=== PATIENT | male | born 1965 | race Caucasian/White ===

== ENCOUNTER 2017-03-16 16:16 | Inpatient (IN) | payer BC ==
[~2017-03-16] VITALS: Ht 154.9 cm; Wt 84.1 kg
[2017-03-16] MEDS ORDERED: HYDROmorphONE 1 MG/ML SYG IV STA ×2 (16:40→21:10)
[2017-03-16] MEDS ORDERED: ONDANSETRON 4 MG INJ IV STA ×2 (16:40→21:10)
[2017-03-16] MEDS ORDERED: IBUPROFEN 800 MG TAB PO ONE (17:00)
[2017-03-16] MEDS ORDERED: CEFTRIAXONE 1 GM/50 ML (PMX) 50 ML IVPB ONE (17:00)
[2017-03-16 17:26] LABS: ADD SCAN DIFF NO
[2017-03-16 17:28] LABS: ABNORMAL IP MESSAGE 1; BASOPHILS % 0.1 % (0.0-2.0); HEMATOCRIT 46.6 % (42.0-52.0); LYMPHOCYTES # 0.7 10^3/ul (0.8-2.9); LYMPHOCYTES % 3.2 % (15.0-51.0); MEAN CORPUSCULAR HEMOGLOBIN 29.9 pg (29.0-33.0); MEAN CORPUSCULAR HGB CONC 34.3 g/dl (32.0-37.0); MEAN CORPUSCULAR VOLUME 86.9 fl (82.0-101.0); MEAN PLATELET VOLUME 10.7 fl (7.4-10.4); MONOCYTE # 1.6 10^3/ul (0.3-0.9); MONOCYTES % 7.1 % (0.0-11.0); NEUTROPHILS % 88.3 % (39.0-77.0); PLATELET COUNT 156 10^3/UL (140-415); RED BLOOD COUNT 5.36 10^6/ul (4.70-6.10); RED CELL DISTRIBUTION WIDTH 12.5 % (11.5-14.5); WHITE BLOOD COUNT 22.7 10^3/ul (4.8-10.8)
[2017-03-16 17:31] LABS: ADD UMIC YES; URINE BILIRUBIN (Dip) 1+ (NEGATIVE); URINE BLOOD (Dip) 3+ (NEGATIVE); URINE COLOR AMBER (YELLOW); URINE KETONES (Dip) NEGATIVE (NEGATIVE); URINE LEUKOCYTE ESTERASE (Dip) 3+ (NEGATIVE); URINE TOTAL PROTEIN (Dip) 2+ (NEGATIVE)
[2017-03-16 17:49] LABS: ALBUMIN 4.5 g/dl (3.3-4.9)
[2017-03-16 17:50] LABS: POTASSIUM 3.6 mmol/L (3.5-5.1)
[2017-03-16 17:52] LABS: ALBUMIN/GLOBULIN RATIO 1.28; BILIRUBIN,INDIRECT 0.9 mg/dl (0-1.1); BILIRUBIN,TOTAL 0.9 mg/dl (0.2-1.3); CREATININE 0.76 mg/dl (0.61-1.24)
[2017-03-16 17:53] LABS: CALCIUM 9.1 mg/dl (8.4-10.2)
[2017-03-16] MEDS ORDERED: SOD CHLORIDE 0.9% 100 ML ONE (18:06)
[2017-03-16] MEDS ORDERED: IOHEXOL 300MG/ML 150 ML BTL ONE (18:06)
[2017-03-16 18:07] LABS: URINE GLUCOSE (Dip) NEGATIVE (NEGATIVE)
[2017-03-16 18:10] LABS: ICTOTEST NEGATIVE (NEGATIVE)
[2017-03-16 18:11] LABS: URINE NITRITE (Dip) POSITIVE (NEGATIVE)
[2017-03-16 18:14] LABS: URINE UROBILINOGEN (Dip) 4.0 E.U./dL (0.1-1.0)
[2017-03-16 18:15] LABS: URINE RBCS 25-50 /HPF (0)
[2017-03-16 18:16] LABS: BACTERIA,URINE FEW
--- NOTE | 2017-03-16 18:38 | RADRPT ---
PROCEDURE: CT Abdomen and Pelvis with contrast. CLINICAL INDICATION: Abdominal pain TECHNIQUE: CT scan of the abdomen and pelvis with contrast was performed on a multidetector high-r esolution CT scanner. Coronal and sagittal reformatted images were obtained from the axial source im ages. Images were reviewed on a high-resolution PACS workstation. 80 cc of Isovue 300 iodinated cont rast was administered intravenously without reported complication. The total exam CTDI equals 16 mG y and the total exam DLP equals 948 mGy-cm. One or more of the following dose reduction techniques were used: Automated exposure control, Adjustment of the mA and/or kV according to patient size, and /or use of iterative reconstruction technique. COMPARISON: Abdominal CT 10/31/08 FINDINGS: Bibasilar atelectasis. Hypoattenuation of the liver. The portal vein is patent. Dilated common bile duct measuring up to 9 mm. Left hepatic cyst. No pancreatic ductal dilatation. The spleen and adrenals are unremarkabl e. No focal pericholecystic inflammatory changes. No hydronephrosis. No obstructing renal stone. No bowel obstruction. Surgical changes of prior appendectomy. No rim-enhancing fluid collection ervin ntified. No significant retroperitoneal lymphadenopathy, ascites or evidence of pneumoperitoneum. Enlarged prostate gland bulging into the base of the bladder. The bladder is distended. IMPRESSION: Status post appendectomy. No evidence of intra-abdominal abscess. Hepatic steatosis. Dilated common bile duct. If warranted, consider further evaluation with MRCP. Enlarged prostate bulging into the base of the distended bladder. RPTAT: AA .Joel Diggs MD, Date Time Electronically viewed and signed by .Joel Diggs MD, MD on 03/16/2017 18:38 .T/
--- NOTE | 2017-03-16 19:09 | ERA ---
ER Documentation Chief Complaint Date/Time DATE: 03/16/17 TIME: 19:04 Chief Complaint painful urination since yesterday HPI This is a pleasant 51-year-old male who is complaining of fever for 2 days with severe dysuria. He has no pain in the cranium. His fever to 103. He has no cough no back pain no nausea vomiting diarrhea. He does have urinary frequency and dysuria prepubic and lower abdominal pain no hematuria. Describes the pain is constant in the lower abdomen and worse with voiding ROS All systems reviewed and are negative except as per history of present illness. Allergies Allergies: Coded Allergies: No Known Allergy (Verified Allergy, Unknown, 10/31/08) PMhx/Soc History of Surgery: Yes (HAND ,APPE) Hx Alcohol Use: No Hx Substance Use: No Hx Tobacco Use: No FmHx Family History: No coronary disease Physical Exam Vitals Vital Signs Date Time Temp Pulse Resp B/P Pulse Ox O2 Delivery O2 Flow Rate FiO2 03/16/17 16:21 102.0 126 26 184/99 96 Physical Exam Const: Well-developed, well-nourished Head: Atraumatic, normocephalic Eyes: Normal Conjunctiva, PERRLA, EOMI, normal sclera, no nystagmus ENT: Normal External Ears, Nose and Mouth, moist mucus membranes. Neck: Full range of motion. No meningismus, no lymphadenopathy. Resp: Clear to auscultation bilaterally, no wheezing, rhonchi, rales Cardio: Regular rate and rhythm, no murmurs, S1 S2 present Abd: Soft, diffuse lower abdominal tenderness or suprapubic, non distended. Normal bowel sounds, no guarding or rebound, no pulsitile abdominal masses or bruits Skin: No petechiae or rashes, no ecchymosis , no maculopapular rash Back: No midline or flank tenderness Ext: No cyanosis, or edema, FROM x 4, normal inspection, neurovascularly intact x 4 Neur: Awake and alert, STR 5/5 x 4, sensation intact x 4, no focal findings, cerebellum intact Psych: Normal Mood and Affect Result Diagram: 03/16/17 1712 03/16/17 1712 Results 24 hrs Laboratory Tests Test 03/16/17 17:12 White Blood Count 22.710^3/ul Red Blood Count 5.3610^6/ul Hemoglobin 16.0g/dl Hematocrit 46.6% Mean Corpuscular Volume 86.9fl Mean Corpuscular Hemoglobin 29.9pg Mean Corpuscular Hemoglobin Concent 34.3g/dl Red Cell Distribution Width 12.5% Platelet Count 84040^3/UL Mean Platelet Volume 10.7fl Neutrophils % 88.3% Lymphocytes % 3.2% Monocytes % 7.1% Eosinophils % 0.0% Basophils % 0.1% Nucleated Red Blood Cells % 0.0/100WBC Neutrophils # 20.010^3/ul Lymphocytes # 0.710^3/ul Monocytes # 1.610^3/ul Eosinophils # 0.010^3/ul Basophils # 0.010^3/ul Nucleated Red Blood Cells # 0.010^3/ul Urine Color ÁNGEL Urine Clarity CLOUDY Urine pH 8.5 Urine Specific Worth 1.015 Urine Ketones NEGATIVE Urine Nitrite POSITIVE Urine Bilirubin 1+ Urine Ictotest NEGATIVE Urine Urobilinogen 4.0 E.U./dL Urine Leukocyte Esterase 3+ Urine Microscopic RBC 25-50/HPF Urine Microscopic WBC 25-50/HPF Urine Amorphous Urates MANY Urine Bacteria FEW Urine Hemoglobin 3+ Urine Glucose NEGATIVE% Urine Total Protein 2+ Sodium Level 136mmol/L Potassium Level 3.6mmol/L Chloride Level 97mmol/L Carbon Dioxide Level 24mmol/L Anion Gap 19 Blood Urea Nitrogen 10mg/dl Creatinine 0.76mg/dl Glucose Level 181mg/dl Calcium Level 9.1mg/dl Total Bilirubin 0.9mg/dl Direct Bilirubin 0.00mg/dl Indirect Bilirubin 0.9mg/dl Aspartate Amino Transf (AST/SGOT) 68IU/L Alanine Aminotransferase (ALT/SGPT) 146IU/L Alkaline Phosphatase 98IU/L Total Protein 8.0g/dl Albumin 4.5g/dl Globulin 3.50g/dl Albumin/Globulin Ratio 1.28 Current Medications Medications (Trade) Dose Ordered Sig/Jose Route PRN Reason Start Time Stop Time Status Last Admin Dose Admin Hydromorphone HCl (Dilaudid) 1 mg ONCE STAT IV 03/16/17 16:40 03/16/17 16:47 DC 03/16/17 17:06 Ondansetron HCl 4 mg 4 mg ONCE STAT IV 03/16/17 16:40 03/16/17 16:47 DC 03/16/17 17:05 Ceftriaxone Sodium (Rocephin) 50 ml @ 100 mls/hr ONCE ONCE IVPB 03/16/17 17:00 03/16/17 17:29 DC 03/16/17 17:05 Ibuprofen (Motrin) 800 mg ONCE ONCE PO 03/16/17 17:00 03/16/17 17:01 DC 03/16/17 17:06 IV Flush 10 ml 10 ml STK-MED ONCE .ROUTE 03/16/17 18:06 03/16/17 18:07 DC 03/16/17 18:24 Sodium Chloride (NS) 100 ml @ ud STK-MED ONCE .ROUTE 03/16/17 18:06 03/16/17 18:07 DC 03/16/17 18:24 Iohexol (Omnipaque 300mg/ ml) 150 ml STK-MED ONCE .ROUTE 03/16/17 18:06 03/16/17 18:07 DC 03/16/17 18:24 Procedures/MDM Patient has an elevated white blood count of 22,700 and infected urine. He has some mild liver function elevations and a dilated common bile duct on CT however he does not clinically have any pain in the epigastric right upper quadrant to correlate with this. I feel is warranted to admit him to the hospital for IV fluids and intravenous antibiotics due to the 102-103 fever with elevated white blood count to make sure he does not become uroseptic Departure Diagnosis: Primary Impression: Fever Qualified Code: R50.9 - Fever, unspecified fever cause Additional Impressions: Urinary tract infection Qualified Code: N30.00 - Acute cystitis without hematuria Leukocytosis Qualified Code: D72.829 - Leukocytosis, unspecified type Condition: Stable DALLAS MCFADDEN DO March 16, 2017 19:08
[2017-03-16] MEDS ORDERED: SOD CHLORIDE 0.9% 1,000 ML IV SCH (21:41)
[2017-03-16] MEDS ORDERED: ONDANSETRON 4 MG INJ IV PRN (22:00)
[2017-03-16] MEDS ORDERED: ACETAMINOPHEN 325 MG TAB PO PRN (22:00)
[2017-03-16 22:36] VITALS: TEMP 98.7
[2017-03-16 23:03] VITALS: Ht 154.9 cm; Wt 84.1 kg
[2017-03-16 23:10] VITALS: BP 129/80; RESP 20
[2017-03-16 23:22] VITALS: BP 129/80; PULSE 104; RESP 18
[2017-03-17] MEDS ORDERED: ONDANSETRON 4 MG INJ IV PRN
[2017-03-17] MEDS ORDERED: NACL 0.9% 3 ML SYG IV SCH
[2017-03-17] MEDS ORDERED: ACETAMINOPHEN 325 MG TAB PO PRN
[2017-03-17] MEDS ORDERED: BISACODYL (EC) 5 MG TAB PO PRN
[2017-03-17] MEDS ORDERED: DOCUSATE SODIUM 100 MG CAP PO PRN
[2017-03-17] MEDS: FAMOTIDINE 20 MG TAB PO SCH ×3 (00:37→21:30)
[2017-03-17] MEDS: HYDROCODONE/APAP (5/325) TAB PO PRN ×5 (00:38→22:59)
[2017-03-17] MEDS: SOD CHLORIDE 0.9% 1,000 ML IV SCH ×2 (00:41→21:32)
[2017-03-17] MEDS: LEVOFLOXACIN 750MG/D5W (PMX) 150 ML IVPB SCH ×2 (01:10→23:00)
[2017-03-17 05:17] LABS: ADD SCAN DIFF NO
[2017-03-17 05:40] LABS: HEMATOCRIT 43.5 % (42.0-52.0); HEMOGLOBIN 14.6 g/dl (14.0-18.0); MEAN CORPUSCULAR HEMOGLOBIN 30.1 pg (29.0-33.0); MEAN CORPUSCULAR HGB CONC 33.6 g/dl (32.0-37.0); MEAN CORPUSCULAR VOLUME 89.7 fl (82.0-101.0); MEAN PLATELET VOLUME 10.6 fl (7.4-10.4); PLATELET COUNT 140 10^3/UL (140-415); RED BLOOD COUNT 4.85 10^6/ul (4.70-6.10); RED CELL DISTRIBUTION WIDTH 12.8 % (11.5-14.5); WHITE BLOOD COUNT 19.4 10^3/ul (4.8-10.8)
[2017-03-17 05:42] LABS: ALBUMIN 3.7 g/dl (3.3-4.9); ALBUMIN/GLOBULIN RATIO 1.12; BILIRUBIN,INDIRECT 0.8 mg/dl (0-1.1); BILIRUBIN,TOTAL 0.8 mg/dl (0.2-1.3); CALCIUM 8.5 mg/dl (8.4-10.2); CHOL/HDL RATIO 3.6 RATIO; CREATININE 0.81 mg/dl (0.61-1.24)
--- NOTE | 2017-03-17 06:12 | HP ---
Date/Time of Note Date/Time of Note DATE: 03/17/17 TIME: 05:58 Assessment/Plan VTE Prophylaxis VTE Prophylaxis Intervention: LMWH Lines/Catheters [facility] Peripheral IV Urinary Cath still in place: No Assessment/Plan Chief Complaint/Hosp Course This is a 51-year-old male being admitted to the [facility] floor for: #1 Lower urinary tract infection: At the current time patient appears to have an uncomplicated UTI however due to the concern of him having a high fever of 103 and a white blood cell count of 22 patient was admitted for IV antibiotics. He was given 1 dose of ceftriaxone in the ER. At the current time I will switch him to Levaquin IV with the concern that there could be a possible underlying prostatitis. He deferred a prostate exam at this time. Will order a PSA level. Repeat CBC in the a.m. Will put patient on IV fluids for hydration. #2 Elevated LFTs: Denies any right upper quadrant pain at this time. However on ultrasound of the abdomen there does appear to be a dilated common bile duct and hepatic steatosis. Will order an initial right upper quadrant ultrasound. And get any further imaging as clinically indicated. #3 Enlarged prostate: CT exam shows an enlarged prostate bulging into the bladder. At the current time patient is producing urine and creatinine is within acceptable values. Will order PSA. Watch out for prostatitis. Consider starting on medications for possible BPH upon discharge. #4 DVT and GI prophylaxis: Lovenox, H2 elijah Problems: HPI/ROS Admit Date/Time Admit Date/Time March 16, 2017 at 21:42 Hx of Present Illness This is a pleasant 51-year-old male who is complaining of fever for 2 days with severe dysuria. He has no pain in the cranium. His fever to 103. He has no cough no back pain no nausea vomiting diarrhea. He does have urinary frequency and dysuria prepubic and lower abdominal pain no hematuria. Describes the pain is constant in the lower abdomen and worse with voiding. Allergies: NKDA Medications: None ROS Const: As per HPI Eyes : No pain discharge or redness or change in visual acuity ENT: No pain, sore throat, congestion, congestion, dysphagia or discharge Respiratory: No shortness of breath, cough, sputum, wheezing, or pleuritic pain Cardiovascular: No chest pain, palpitation, PND, or edema GI : As per HPI Genitourinary: As per HPI Musculoskeletal: No joint pain, back pain, neck pain, restricted range of motion in neck or joints Skin: No rash, bruising or hives Neuro: No headache, dizziness, syncope, seizure, focal weakness Endocrine: No polyuria, polydipsia, temperature intolerance Psych: No hallucination, depression, anxiety or suicidal ideation PMH/Family/Social Past Medical History Medical History: no pertinent history Past Surgical History Appendectomy, left elbow fracture repair Family History Significant Family History: cancer (Father: Prostate cancer) Social History Alcohol Use: none Smoking Status: Never smoker Drug Use: none Exam/Review of Systems Vital Signs Vitals Vital Signs Date Time Temp Pulse Resp B/P Pulse Ox O2 Delivery O2 Flow Rate FiO2 03/16/17 23:22 99.0 104 18 129/80 94 03/16/17 22:36 Room Air Intake and Output 03/16/17 03/16/17 03/17/17 15:00 23:00 07:00 Intake Total 80 ml 250 ml Balance 80 ml 250 ml Exam Exam General: Patient is well-developed well-nourished The patient is alert oriented -3 lying comfortably in bed. HEENT: Atraumatic, normocephalic. The pupils are equal, round and reactive. Extraocular motor are intact Neck: Supple with full range of motion. No rigidity or meningismus Chest: Nontender Lungs: Clear to auscultation bilaterally no crackles rales or wheezing Heart: Normal S1-S2, Regular rhythm and rate. No murmur, S3, or S4 Abdomen: Suprapubic tenderness to palpation, soft, normal bowel sounds. No CVA tenderness bilaterally Extremities: Normal to inspection, no edema no cyanosis Neurologic: Normal mental status, speech normal, cranial nerves II through XII are intact, motor and sensory are intact, no focal weakness Additional Comments CT of the abdomen and pelvis IMPRESSION: Status post appendectomy. No evidence of intra-abdominal abscess. Hepatic steatosis. Dilated common bile duct. If warranted, consider further evaluation with MRCP. Enlarged prostate bulging into the base of the distended bladder. Please refer to dictated report by radiology for further information Labs Result Diagram: 03/17/17 0439 03/17/17 0439 Medications Medications Current Medications Levofloxacin/ Dextrose 150 ml @ 100 mls/hr Q24H IVPB Last administered on 01:10; Admin Dose 100 MLS/HR; Start 03/17/17 at 00:00 Sodium Chloride (NS) 1,000 ml @ 50 mls/hr Q20H IV Last administered on 00:41; Admin Dose 50 MLS/HR; Start 03/16/17 at 23:59 Ondansetron HCl (Zofran Inj) 4 mg Q6H PRN IV NAUSEA AND/OR VOMITING; Start 03/17 at 00:00 Acetaminophen (Tylenol Tab) 650 mg Q6H PRN PO PAIN LEVEL 1-3 OR FEVER; Start at 00:00 Acetaminophen/ Hydrocodone Bitart ([place] (5/325)) 1 tab Q6H PRN PO MODERATE PAIN LEVEL 4-6 Last administered on 03/17/17 00:38; Admin Dose 1 TAB; Start 03/17 at 00:00 Docusate Sodium (Colace) 100 mg Q12H PRN PO CONSTIPATION; Start 03/17/17 at 00: 00 Bisacodyl (Dulcolax) 5 mg DAILY PRN PO CONSTIPATION; Start 03/17/17 at 00:00 Zolpidem Tartrate (Ambien) 5 mg QHS PRN PO SLEEP; Start 03/17/17 at 00:00 Famotidine (Pepcid) 20 mg Q12 PO Last administered on 03/17/17 00:37; Admin Dose 20 MG; Start 03/17/17 at 00:00 Enoxaparin Sodium (Lovenox) 40 mg DAILY SC ; Start 03/17/17 at 09:00 FAUSTINA MONK March 17, 2017 06:08
[2017-03-17 08:17] VITALS: BP 113/64; RESP 18
[2017-03-17] MEDS: ENOXAPARIN 40 MG/0.4 ML SYG SC SCH (08:18)
--- NOTE | 2017-03-17 09:19 | RADRPT ---
PROCEDURE: US Abdomen. CLINICAL INDICATION: elevated LFTs TECHNIQUE: Multiple real-time images were acquired of the patient's abdomen and retroperitoneum ut ilizing a high resolution transducer. COMPARISON: 03/16/2017 FINDINGS: The liver demonstrates increased echogenicity. The liver is normal in size and no focal solid lesio ns are seen. The liver measures 16.6 cm in length. The portal vein is patent with normal direction o f flow. No intrahepatic biliary dilatation is seen. No gallstones are identified within the gallbladder. There is no pericholecystic fluid or gallbladd er wall thickening. The common bile duct measures 10 mm in maximal dimension. The visualized portions of the pancreas are unremarkable. The tail of the pancreas is not seen. No free fluid is identified. The right kidney is normal in size, and demonstrate normal echogenicity and cortical thickness. The right kidney measures 11.7 cm in long dimension. There is no evidence of hydronephrosis. There are no kidney stones. IMPRESSION: Diffuse fatty infiltration of the liver.. Dilated CBD. No evidence of gallstones. RPTAT: AA .Puma Rondon MD, MD Date Time Electronically viewed and signed by .Puma Rondon MD, MD on 03/17/2017 09:19 .S/
[2017-03-17 09:56] LABS: LYMPHOCYTES # 1.4 10^3/ul (0.8-2.9); NEUTROPHIL # 16.9 10^3/ul (1.6-7.5)
[2017-03-17 20:27] VITALS: BP 121/73; RESP 19
[2017-03-17] MEDS: TAMSULOSIN (SR) 0.4 MG CAP PO SCH (21:30)
[2017-03-17] MEDS: ZOLPIDEM 5 MG TAB PO PRN (23:54)
--- NOTE | 2017-03-18 02:57 | CONS ---
DATE OF ADMISSION: 03/17/2017 DATE OF CONSULTATION: 03/17/2017 REQUESTING PHYSICIAN: Dr. Kelly. Dear Dr. Kelly: Thank you for asking me to see this patient in urological consultation. 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 The p atient was found to have urinary tract infection and probably prostatitis. He did have a CT scan of the abdomen and pelvis and that showed a bladder distended all the way up to the umbilicus and also the patient had a very large prostate. Therefore, a urological consultation was requested. Prior to this episode of infection, the patient stated that he usually have nocturia 0 to 1. During the d ay, he voids often because he drinks a lot of water and he described his urinary stream as strong an d no history of dysuria before and no history of gross hematuria. His father does have a history of prostate cancer, but he is in his 80s. The patient denies any prior urological problem. PAST MEDICAL HISTORY: In addition to the above, the patient has no prior medical problem. No hyper tension. No diabetes. No heart or lung disease. PAST SURGICAL HISTORY: He has had a history of appendectomy, left elbow fracture and surgery. SOCIAL HISTORY: He does not smoke, does not drink alcohol, and there is no history of drug abuse. MEDICATIONS: He is presently on include 1. Tamsulosin 0.4 mg at bedtime daily. 2. [place] p.r.n. 3. Lovenox. 4. Levaquin. 5. Zofran p.r.n. 6. Tylenol p.r.n. 7. Colace 100 mg twice a day p.r.n. 8. Dulcolax p.r.n. 9. Ambien p.r.n. 10. Pepcid 20 mg p.o. every 12 hours. PHYSICAL EXAMINATION: GENERAL: Reveals a 51-year-old male. VITAL SIGNS: He weighs 84 kilograms. He is 61 inches tall. His temperature on admission was 102.0 . Today, his temperature is 99.3; pulse is 105, respiration 18, blood pressure 113/64. HEAD AND NECK: Unremarkable. ABDOMEN: Obese, it felt to me like his bladder is distended, but yet he just voided and I did the b ladder scan on him and his PVR by the bladder scan appeared to be between 150 to 200 mL. GENITALIA: External genitalia are normal. RECTAL: Examination revealed a very large prostate and is a little bit tender. LABORATORY DATA: His CBC shows a white count of 22.7 on admission, today is 19.4, hemoglobin 14.6, hematocrit 43.5. BUN 14 and creatinine 0.81. Electrolytes are normal. His PSA is 50.5. The PSA i s probably elevated because of the infection; however, possibility of prostate cancer always exists. IMPRESSION: Urinary tract infection and acute prostatitis, rule out urinary retention. PLAN: To continue him on antibiotic and the Flomax. I ordered also a pelvic ultrasound to make camryn e that there is no retention. Will have the bladder volume measured before he voids and after he vo ids, and also measure the prostate and I already checked the prostate on the CAT scan and measured i t and it is very large measuring between 5 and 6 cm in size. I will follow his urological problem with you. I do thank you for allowing me to help in his care. His urine culture did show 100,000 colonies per mL of gram-negative rods. The sensitivity is pendi ng. Dictated By: MITZI LEZAMA/BETTINA Conf#: [id number] DID#: [id number]
[2017-03-18] MEDS: HYDROCODONE/APAP (5/325) TAB PO PRN ×3 (03:27→17:05)
[2017-03-18 05:21] LABS: ADD SCAN DIFF NO
[2017-03-18 05:25] LABS: BASOPHILS % 0.2 % (0.0-2.0); EOSINOPHILS # 0.1 10^3/ul (0.0-0.5); EOSINOPHILS % 0.7 % (0.0-7.0); HEMATOCRIT 41.6 % (42.0-52.0); HEMOGLOBIN 13.8 g/dl (14.0-18.0); LYMPHOCYTES # 1.1 10^3/ul (0.8-2.9); LYMPHOCYTES % 8.9 % (15.0-51.0); MEAN CORPUSCULAR HEMOGLOBIN 29.9 pg (29.0-33.0); MEAN CORPUSCULAR HGB CONC 33.2 g/dl (32.0-37.0); MEAN CORPUSCULAR VOLUME 90.2 fl (82.0-101.0); MEAN PLATELET VOLUME 10.8 fl (7.4-10.4); MONOCYTE # 1.1 10^3/ul (0.3-0.9); MONOCYTES % 9.2 % (0.0-11.0); NEUTROPHIL # 9.5 10^3/ul (1.6-7.5); NEUTROPHILS % 78.4 % (39.0-77.0); PLATELET COUNT 165 10^3/UL (140-415); RED BLOOD COUNT 4.61 10^6/ul (4.70-6.10); RED CELL DISTRIBUTION WIDTH 12.6 % (11.5-14.5); WHITE BLOOD COUNT 12.1 10^3/ul (4.8-10.8)
[2017-03-18 05:39] LABS: CALCIUM 8.7 mg/dl (8.4-10.2); CREATININE 0.8 mg/dl (0.61-1.24); MAGNESIUM 1.9 mg/dl (1.7-2.5); PHOSPHORUS 3.1 mg/dl (2.5-4.9); POTASSIUM 3.7 mmol/L (3.5-5.1)
--- NOTE | 2017-03-18 07:55 | RADRPT ---
PROCEDURE: MRCP. CLINICAL INDICATION: Abdominal pain. TECHNIQUE: MRCP was performed. Patient was examined without contrast. 3-D coronal rotating MIP i mages of the biliary tree are available for review. COMPARISON: Ultrasound, 03/17/2017; CT, 03/16/2017 FINDINGS: The gallbladder is unremarkable. No gallstone, gallbladder wall thickening or pericholecystic fluid is identified. There is mild dilatation of the common bile duct, measuring 9 mm in maximal diameter . No intrahepatic biliary dilatation is identified. No evidence of common duct stone, stricture or filling defect is seen. Pancreatic duct is normal in caliber. Borderline hepatomegaly (18 cm) and splenomegaly (13 cm) are noted. Liver demonstrates a small kate gn cysts. Pancreas, adrenal glands and kidneys are unremarkable. There is no obstructive uropathy. The stomach is grossly unremarkable. Abdominal aorta is normal in caliber. There is no retroperitoneal or vernon hepatis lymphadenopathy. No bowel obstruction, abscess or ascites is seen. Urinary bladder appears significantly distended , concerning for urinary retention. The surrounding osseous structures are remarkable for degenerat catrachita spondylosis of the spine. IMPRESSION: 1. There is nonspecific mild dilatation of the common bile duct, without evidence of intrahepatic b iliary dilatation or choledocholithiasis. 2. There is borderline hepatosplenomegaly, as above. 3. Urinary bladder appears significantly distended, concerning for urinary retention. RPTAT: EE .Brandon Higuera MD, Date Time Electronically viewed and signed by .Brandon Higuera MD, on 03/18/2017 07:54 .R/
--- NOTE | 2017-03-18 08:01 | RADRPT ---
PROCEDURE: Ultrasound pelvis CLINICAL INDICATION: Urinary retention, prostatomegaly TECHNIQUE: Transabdominal sonographic evaluation of the pelvis was performed. COMPARISON: CT, 03/16/2017 FINDINGS: No evidence of focal urinary bladder wall abnormality is identified. Prevoid bladder volume is 821 cc. Postvoid residual is 565 cc. The prostate gland is not well visualized, measuring approximate ly 3.5 x 3.9 x 3.4 cm, with calculated volume of approximately 30 cc. No pelvic free fluid is ident ified. IMPRESSION: 1. Abnormal urinary bladder postvoid residual of 565 cc is identified, compatible with urinary rete ntion. 2. Prostate gland is not well visualized. Prostate volume is sonographically calculated to be appr oximately 30 cc, however this measurement is thought to be inaccurate secondary to poor visualizatio n of the prostate. On the recent prior CT, the prostate is clearly enlarged, measuring approximately 6.2 x 5.2 x 5.1 cm, with a calculated volume of approximately 86 cc. RPTAT: EE .Brandon Higuera MD, MD Date Time Electronically viewed and signed by .Brandon Higuera MD, on 03/18/2017 08:01 .R/
[2017-03-18 08:45] VITALS: BP 129/71; RESP 20
[2017-03-18] MEDS: FAMOTIDINE 20 MG TAB PO SCH ×2 (08:55→20:12)
[2017-03-18] MEDS: ENOXAPARIN 40 MG/0.4 ML SYG SC SCH (09:00)
[2017-03-18] MEDS: CEFTRIAXONE 1 GM/50 ML (PMX) 50 ML IVPB SCH (11:59)
--- NOTE | 2017-03-18 14:33 | PN ---
Date/Time of Note Date/Time of Note DATE: 03/18/17 TIME: 14:29 Assessment/Plan VTE Prophylaxis VTE Prophylaxis Intervention: LMWH Lines/Catheters [facility] Peripheral IV Urinary Cath still in place: No Assessment/Plan Chief Complaint/Hosp Course #1 Sepsis secondary to prostatitis-improved Urine culture shows E. coli, DC Levaquin and start Rocephin #2 Elevated LFTs-improving MRCP shows nonspecific dilated common bile duct without choledocholithiasis #3 BPH Urology consultation appreciated Continue Flomax At this time there is no evidence of urinary retention #4 DVT and GI prophylaxis: Lovenox, H2 eliajh Discharge planning: Likely DC in a.m. when white count has normalized Problems: Subjective 24 Hr Interval Summary Constitutional: no complaints Exam/Review of Systems Vital Signs Vitals Vital Signs Date Time Temp Pulse Resp B/P Pulse Ox O2 Delivery O2 Flow Rate FiO2 03/18/17 08:45 98.1 72 20 129/71 95 03/16/17 22:36 Room Air Intake and Output 03/17/17 03/17/17 03/18/17 15:00 23:00 07:00 Intake Total 1260 ml 1225 ml Output Total 1200 ml 1000 ml Balance 60 ml 225 ml Exam Constitutional: alert Respiratory: clear to auscultation Cardiovascular: regular rate and rhythm Gastrointestinal: soft, No distended Musculoskeletal: nl extremities to inspection Results Result Diagram: 03/18/17 0434 03/18/17 0434 Results 24 hrs Laboratory Tests Test 03/18/17 04:34 White Blood Count 12.1 #H Red Blood Count 4.61 L Hemoglobin 13.8 L Hematocrit 41.6 L Mean Corpuscular Volume 90.2 Mean Corpuscular Hemoglobin 29.9 Mean Corpuscular Hemoglobin Concent 33.2 Red Cell Distribution Width 12.6 Platelet Count 165 Mean Platelet Volume 10.8 H Neutrophils % 78.4 H Lymphocytes % 8.9 L Monocytes % 9.2 Eosinophils % 0.7 Basophils % 0.2 Nucleated Red Blood Cells % 0.0 Neutrophils # 9.5 H Lymphocytes # 1.1 Monocytes # 1.1 H Eosinophils # 0.1 Basophils # 0.0 Nucleated Red Blood Cells # 0.0 Sodium Level 133 L Potassium Level 3.7 Chloride Level 99 Carbon Dioxide Level 27 Anion Gap 11 Blood Urea Nitrogen 15 Creatinine 0.80 Glucose Level 128 Calcium Level 8.7 Phosphorus Level 3.1 Magnesium Level 1.9 Medications Medications Current Medications Sodium Chloride (NS) 1,000 ml @ 50 mls/hr Q20H IV Last administered on 21:32; Admin Dose 50 MLS/HR; Start 03/16/17 at 23:59 Ondansetron HCl (Zofran Inj) 4 mg Q6H PRN IV NAUSEA AND/OR VOMITING; Start 03/17 at 00:00 Acetaminophen (Tylenol Tab) 650 mg Q6H PRN PO PAIN LEVEL 1-3 OR FEVER Last administered on 03/18/17 01:14; Admin Dose 650 MG; Start 03/17/17 at 00:00 Docusate Sodium (Colace) 100 mg Q12H PRN PO CONSTIPATION; Start 03/17/17 at 00: 00 Bisacodyl (Dulcolax) 5 mg DAILY PRN PO CONSTIPATION; Start 03/17/17 at 00:00 Zolpidem Tartrate (Ambien) 5 mg QHS PRN PO SLEEP Last administered on 03/17/17 23:54; Admin Dose 5 MG; Start 03/17/17 at 00:00 Famotidine (Pepcid) 20 mg Q12 PO Last administered on 03/18/17 08:55; Admin Dose 20 MG; Start 03/17/17 at 00:00 Enoxaparin Sodium (Lovenox) 40 mg DAILY SC Last administered on 03/18/17 09:00 ; Admin Dose 40 MG; Start 03/17/17 at 09:00 Acetaminophen/ Hydrocodone Bitart ([place] (5/325)) 1 tab Q4 PRN PO MODERATE PAIN LEVEL 4-6 Last administered on 03/18/17 12:00; Admin Dose 1 TAB; Start 03/17 at 12:36 Tamsulosin HCl 0.4 mg 0.4 mg HS PO Last administered on 03/17/17 21:30; Admin Dose 0.4 MG; Start 03/17/17 at 21:00 Ceftriaxone Sodium (Rocephin) 50 ml @ 100 mls/hr Q24H IVPB Last administered on 03/18/17 11:59; Admin Dose 100 MLS/HR; Start 03/18/17 at 11:30 VERNELL FERRERA March 18, 2017 14:33
[2017-03-18] MEDS: SOD CHLORIDE 0.9% 1,000 ML IV SCH (17:08)
[2017-03-18 20:00] VITALS: BP 134/88; RESP 20
[2017-03-18] MEDS: TAMSULOSIN (SR) 0.4 MG CAP PO SCH (20:12)
--- NOTE | 2017-03-19 02:32 | PN ---
DATE: 03/18/2017 SUBJECTIVE: The patient having urinary frequency. He does have dysuria, and he was admitted with d iagnosis of UTI and prostatitis. Also, on the CT scan, his bladder appeared to be distended. So ye sterday when I saw him, he just voided and we checked him with a bladder scan. The bladder scan was only about 200 mL postvoid residual. Even though I felt like his bladder is a little distend ed and , it could be up to the umbilicus. Because of that, I did go ahead and order a pelvic u ltrasound to measure the pre and postvoid bladder residual, and the prostate size. OBJECTIVE: VITAL SIGNS: Temperature is 98.6, the pulse is 81, respirations 20, blood pressure 134/88. ABDOMEN: The bladder is distended and the patient just voided about 15 minutes prior to the time I saw him, and the ultrasound that he had, the pelvic ultrasound, also reported postvoid residual was 565. The bladder was distended and he was in retention. The prostate size as measured by the CAT s can was about 86 mL. Also, he did have MRI of the abdomen, and the MRI showed urinary bladder appea rs significantly distended, concerning for urinary retention. Therefore, as he did urinate about 15 minutes before I saw him, I went ahead and inserted a 16-M[place] Corona catheter for him and that sangita ined 700 mL of postvoid residual, therefore, the Corona catheter was kept in place. His urine cultur e did show 100,000 E. coli that is sensitive to all the antibiotics. PLAN: To continue the ceftriaxone, continue the tamsulosin and keep the Corona catheter in. I will follow his urological problem. Dictated By: MITZI LEZAMA/BETTINA Conf#: [id number] DID#: [id number] CC: Harsha Jaramillo;*End*
[2017-03-19] MEDS: ZOLPIDEM 5 MG TAB PO PRN (02:41)
[2017-03-19 05:13] LABS: ADD SCAN DIFF NO
[2017-03-19 05:17] LABS: ABNORMAL IP MESSAGE 1; BASOPHILS % 0.1 % (0.0-2.0); EOSINOPHILS # 0.1 10^3/ul (0.0-0.5); EOSINOPHILS % 1.8 % (0.0-7.0); HEMATOCRIT 40.7 % (42.0-52.0); HEMOGLOBIN 13.9 g/dl (14.0-18.0); LYMPHOCYTES # 0.9 10^3/ul (0.8-2.9); LYMPHOCYTES % 13.6 % (15.0-51.0); MEAN CORPUSCULAR HEMOGLOBIN 30.6 pg (29.0-33.0); MEAN CORPUSCULAR HGB CONC 34.2 g/dl (32.0-37.0); MEAN CORPUSCULAR VOLUME 89.6 fl (82.0-101.0); MEAN PLATELET VOLUME 10.1 fl (7.4-10.4); MONOCYTE # 0.8 10^3/ul (0.3-0.9); MONOCYTES % 10.9 % (0.0-11.0); NEUTROPHIL # 4.5 10^3/ul (1.6-7.5); NEUTROPHILS % 66.2 % (39.0-77.0); PLATELET COUNT 196 10^3/UL (140-415); RED BLOOD COUNT 4.54 10^6/ul (4.70-6.10); RED CELL DISTRIBUTION WIDTH 12.5 % (11.5-14.5); WHITE BLOOD COUNT 6.9 10^3/ul (4.8-10.8)
[2017-03-19 05:35] LABS: POTASSIUM 3.6 mmol/L (3.5-5.1)
[2017-03-19 05:38] LABS: CREATININE 0.73 mg/dl (0.61-1.24)
[2017-03-19 05:39] LABS: CALCIUM 8.4 mg/dl (8.4-10.2)
[2017-03-19 07:26] VITALS: BP 155/85; RESP 19
[2017-03-19] MEDS: FAMOTIDINE 20 MG TAB PO SCH ×2 (08:11→20:26)
[2017-03-19] MEDS: ENOXAPARIN 40 MG/0.4 ML SYG SC SCH (08:14)
[2017-03-19] MEDS: CEFTRIAXONE 1 GM/50 ML (PMX) 50 ML IVPB SCH (12:01)
[2017-03-19] MEDS: SOD CHLORIDE 0.9% 1,000 ML IV SCH ×2 (12:01→20:29)
--- NOTE | 2017-03-19 16:32 | PN ---
Date/Time of Note Date/Time of Note DATE: 03/19/17 TIME: 16:27 Assessment/Plan VTE Prophylaxis VTE Prophylaxis Intervention: LMWH Lines/Catheters IV [facility] Peripheral IV Assessment/Plan Chief Complaint/Hosp Course #1 Sepsis secondary to prostatitis-resolving Urine culture shows E. coli, DC Levaquin and start Rocephin #2 Elevated LFTs-improving MRCP shows nonspecific dilated common bile duct without choledocholithiasis #3 BPH with urinary retention Corona catheter placed by urology, continue monitor Urology consultation appreciated, follow-up with recommendations Continue Flomax #4 DVT and GI prophylaxis: Lovenox, H2 elijah Problems: Subjective 24 Hr Interval Summary Constitutional: no complaints Exam/Review of Systems Vital Signs Vitals Vital Signs Date Time Temp Pulse Resp B/P Pulse Ox O2 Delivery O2 Flow Rate FiO2 03/19/17 07:26 98.0 93 19 155/85 99 03/16/17 22:36 Room Air Intake and Output 03/18/17 03/18/17 03/19/17 15:00 23:00 07:00 Intake Total 1700 ml 820 ml Output Total 2840 ml 600 ml Balance -1140 ml 220 ml Exam Constitutional: alert Respiratory: clear to auscultation Cardiovascular: regular rate and rhythm Gastrointestinal: soft, No distended Musculoskeletal: nl extremities to inspection Results Result Diagram: 03/19/17 0412 03/19/17 0412 Results 24 hrs Laboratory Tests Test 03/19/17 04:12 White Blood Count 6.9 # Red Blood Count 4.54 L Hemoglobin 13.9 L Hematocrit 40.7 L Mean Corpuscular Volume 89.6 Mean Corpuscular Hemoglobin 30.6 Mean Corpuscular Hemoglobin Concent 34.2 Red Cell Distribution Width 12.5 Platelet Count 196 Mean Platelet Volume 10.1 Neutrophils % 66.2 Lymphocytes % 13.6 L Monocytes % 10.9 Eosinophils % 1.8 Basophils % 0.1 Nucleated Red Blood Cells % 0.0 Neutrophils # 4.5 Lymphocytes # 0.9 Monocytes # 0.8 Eosinophils # 0.1 Basophils # 0.0 Nucleated Red Blood Cells # 0.0 Sodium Level 138 Potassium Level 3.6 Chloride Level 104 Carbon Dioxide Level 24 Anion Gap 14 Blood Urea Nitrogen 13 Creatinine 0.73 Glucose Level 111 Calcium Level 8.4 Medications Medications Current Medications Sodium Chloride (NS) 1,000 ml @ 50 mls/hr Q20H IV Last administered on 12:01; Admin Dose 50 MLS/HR; Start 03/16/17 at 23:59 Ondansetron HCl (Zofran Inj) 4 mg Q6H PRN IV NAUSEA AND/OR VOMITING; Start 03/17 at 00:00 Acetaminophen (Tylenol Tab) 650 mg Q6H PRN PO PAIN LEVEL 1-3 OR FEVER Last administered on 03/18/17 01:14; Admin Dose 650 MG; Start 03/17/17 at 00:00 Docusate Sodium (Colace) 100 mg Q12H PRN PO CONSTIPATION; Start 03/17/17 at 00: 00 Bisacodyl (Dulcolax) 5 mg DAILY PRN PO CONSTIPATION; Start 03/17/17 at 00:00 Zolpidem Tartrate (Ambien) 5 mg QHS PRN PO SLEEP Last administered on 02:41; Admin Dose 5 MG; Start 03/17/17 at 00:00 Famotidine (Pepcid) 20 mg Q12 PO Last administered on 03/19/17 08:11; Admin Dose 20 MG; Start 03/17/17 at 00:00 Enoxaparin Sodium (Lovenox) 40 mg DAILY SC Last administered on 03/19/17 08:14 ; Admin Dose 40 MG; Start 03/17/17 at 09:00 Acetaminophen/ Hydrocodone Bitart (Sayre (5/325)) 1 tab Q4 PRN PO MODERATE PAIN LEVEL 4-6 Last administered on 03/18/17 17:05; Admin Dose 1 TAB; Start 03/17 at 12:36 Tamsulosin HCl 0.4 mg 0.4 mg HS PO Last administered on 03/18/17 20:12; Admin Dose 0.4 MG; Start 03/17/17 at 21:00 Ceftriaxone Sodium (Rocephin) 50 ml @ 100 mls/hr Q24H IVPB Last administered on 03/19/17 12:01; Admin Dose 100 MLS/HR; Start 03/18/17 at 11:30 VERNELL FERRERA March 19, 2017 16:32
--- NOTE | 2017-03-19 17:30 | CONS ---
DATE OF ADMISSION: 03/17/2017 DATE OF CONSULTATION: 03/19/2017 TYPE OF CONSULTATION: Infectious disease. REASON FOR CONSULTATION: Antibiotic management blood. HISTORY OF THE PRESENT ILLNESS: Radha Cai is a 51-year-old male who comes in for urologic al evaluation for prostatitis. He comes in complaining of 2-day history of severe dysuria, temperat ure of 103, no back pain. He complains of urinary frequency and dysuria, prepubic and lower abdomin al pain without hematuria. He describes the pain as constant. PAST MEDICAL HISTORY: Operations as outlined. PAST SURGICAL HISTORY: Status post appendectomy, status post left elbow fracture repair. FAMILY HISTORY: Positive for prostate cancer. SOCIAL HISTORY: He does not smoke, drink or abuse drugs. ALLERGIES: NONE TO PENICILLIN, SULFA OR FOODS. MEDICATIONS: Per chart. REVIEW OF SYSTEMS: As per HPI. PHYSICAL EXAMINATION: GENERAL: The patient is a well-developed, well-nourished male who is alert, responsive, in no acute distress. VITAL SIGNS: Stable. He is afebrile. SKIN: Without generalized rash. HEENT: Within normal limits. NECK: Supple. LYMPH NODES: None palpable. CHEST: Decreased breath sounds at the bases. HEART: Without murmur or gallop. ABDOMEN: Soft, nontender. He has suprapubic tenderness to palpation. He has no CVA tenderness. EXTREMITIES: Without cyanosis, clubbing, or edema. RECTAL AND GENITAL: Deferred. NEUROLOGICAL: No focal neurological abnormality. IMAGING: CT scan of the abdomen. Pelvis shows status post appendectomy. No intraabdominal abscess . Hepatic steatosis. Large prostate, bulging into the base of the distended bladder. LABORATORY DATA: White count is 19.4, H and H of 14.6 and 43.5, platelet count 140,000. BUN and cr eatinine 14/0.81, glucose 132. HOSPITAL COURSE: The patient was started on Levaquin. He was seen in consultation by Dr. Nathaly griffith felt that he had urinary tract infection and acute prostatitis, rule out retention. He ordered a pelvic ultrasound to make sure there is no retention. Prostate is very large, measuring between [address] of the abdomen as noted enlarged bulging prostate. Liver ultrasound, diffuse fatty in filtration of the liver. Dilated common bile duct, no evidence of gallstones. Abdominal MRI, nonsp ecific mild dilatation of the common bile duct without evidence of intrahepatic biliary dilatation o r choledocholithiasis, borderline hepatosplenomegaly, urinary bladder appears significantly distende d, concerning for urinary retention. Pelvic ultrasound is as previously noted. A 6.2 x 5.25 x 5.1 cm prostate, volume of 86 mL. The patient has E. coli in the urine, sensitive to all. He was start ed on ceftriaxone and seems to be doing better at this point. We will continue him on current thera py. I will dictate my findings to the hospitalist and to Dr. Andersen. Dictated By: CHRISTOFER MEDEIROS MD, JD/BETTINA Conf#: [id number] DID#: [id number]
[2017-03-19 19:00] VITALS: BP 141/91; RESP 18
[2017-03-19] MEDS: TAMSULOSIN (SR) 0.4 MG CAP PO SCH (20:26)
--- NOTE | 2017-03-19 20:49 | PN ---
DATE: 03/19/2017 SUBJECTIVE: The patient is feeling much better that we put a Corona catheter in and drained his urin emily retention yesterday. He denies having any pain, but is a little bothered by the catheter. OBJECTIVE: VITAL SIGNS: His temperature is 98.4, pulse is 93, respiration 18, blood pressure 141/91. ABDOMEN: Soft. The bladder is not distended. The Corona catheter is draining clear urine. LABORATORY DATA: CBC shows a white count today of 6.9 drastically down from what it was 22,700 befo re, and yesterday at 12,100. His hemoglobin is 13.9, hematocrit 40.7. His also creatinine 0.73, BU N 13. Electrolytes are normal. The urine culture did show 100,000 E. coli that is sensitive to all antibiotics. IMPRESSION: 1. Acute prostatitis. 2. Urinary tract infection. 3. Urinary retention. RECOMMENDATION: To continue his antibiotic. He could go home on oral antibiotic and also go home w ith the Corona catheter and a leg bag. Continue him on the tamsulosin 0.4 mg twice a day. After he goes home, then he could be referred to my office for followup. Then we could take out the Corona ca theter and see if he is able to urinate. The question is that he is an HMO patient and he is on a g roup name August, which I do not know what that is. If he needs to come in to my office, then he will need an authorization for that. Dictated By: MITZI LEZAMA/BETTINA Conf#: [id number] DID#: [id number] CC: Harsha Jaramillo;*EndCC*
[2017-03-20 04:43] LABS: ADD SCAN DIFF NO
[2017-03-20 04:56] LABS: ABNORMAL IP MESSAGE 1; HEMATOCRIT 42.5 % (42.0-52.0); HEMOGLOBIN 14.1 g/dl (14.0-18.0); MEAN CORPUSCULAR HEMOGLOBIN 29.5 pg (29.0-33.0); MEAN CORPUSCULAR HGB CONC 33.2 g/dl (32.0-37.0); MEAN CORPUSCULAR VOLUME 88.9 fl (82.0-101.0); MEAN PLATELET VOLUME 9.7 fl (7.4-10.4); PLATELET COUNT 197 10^3/UL (140-415); RED BLOOD COUNT 4.78 10^6/ul (4.70-6.10); RED CELL DISTRIBUTION WIDTH 12.6 % (11.5-14.5); WHITE BLOOD COUNT 7.6 10^3/ul (4.8-10.8)
[2017-03-20 05:18] LABS: POTASSIUM 3.9 mmol/L (3.5-5.1)
[2017-03-20 05:21] LABS: CALCIUM 8.9 mg/dl (8.4-10.2); CREATININE 0.75 mg/dl (0.61-1.24)
[2017-03-20 08:04] VITALS: BP 144/90; RESP 19
[2017-03-20] MEDS: FAMOTIDINE 20 MG TAB PO SCH (09:10)
[2017-03-20] MEDS: TAMSULOSIN (SR) 0.4 MG CAP PO SCH (09:11)
[2017-03-20] MEDS: ENOXAPARIN 40 MG/0.4 ML SYG SC SCH (09:22)
[2017-03-20] MEDS ORDERED: TAMS-14 PO (10:31)
[2017-03-20] MEDS ORDERED: CEPH500C PO (10:31)
--- NOTE | 2017-03-20 10:33 | PDOCDIS ---
Discharge Instructions CONDITION Patient Condition: Good HOME CARE INSTRUCTIONS: Diet Instructions: Regular ACTIVITY: Activity Restrictions: Slowly Increase Activity Rest between Activity Avoid heavy lifting Bathing Restrictions: Shower FOLLOW UP/APPOINTMENTS Appointments F/U WITH DR WISDOM IN 1 WEEK FOR REMOVAL OF YOUR HER CATHETER, F/U WITH YOUR PCP VERNELL FERRERA March 20, 2017 10:33
[2017-03-20] MEDS: CEFTRIAXONE 1 GM/50 ML (PMX) 50 ML IVPB SCH (11:58)
--- NOTE | 2017-03-20 12:41 | DS ---
DATE OF ADMISSION: 03/17/2017 DATE OF DISCHARGE: 03/20/2017 DISCHARGE DIAGNOSES: 1. Sepsis secondary to prostatitis, resolved. Discharged with p.o. antibiotics. 2. Transaminitis, resolved. Magnetic resonance cholangiopancreatography did show nonspecific dilat ed common bile duct, but no choledocholithiasis. 3. Benign prostatic hypertrophy with urinary retention, status post Corona catheter placement and ur ology consultation. Plan is to discharge with Corona catheter and follow up with urology in 1 week f or removal of Corona catheter. The patient has been started on Flomax 0.4 b.i.d. and will continue w ith this upon discharge. HOSPITAL COURSE: The patient is a 51-year-old male with no significant past medical history. The p atient presents with a fever as well as dysuria and suprapubic abdominal pain for several days now. The patient did have a fever as high as 103, and was noted to have a UTI in both UA as well as a ur ine culture which showed E. coli sensitive to multiple antibiotics. The patient did have abdominal pelvis CT that showed a large prostate, did show a dilated common bile duct, hepatic steatosis. ____ dilated CBD patient did have an MRCP that showed nonspecific mild dilation of the common bile duct w ithout evidence of intrahepatic biliary dilatation or choledocholithiasis. There was borderline hep atosplenomegaly and once again, the urinary bladder appeared significantly distended, concerning for urinary retention. The patient had a pelvic ultrasound that showed abnormal urinary bladder, post- void residual 565 mL, compatible with urinary retention. Prostate volume was calculated to be appro ximately 30 mL; however, this measure was to be inaccurate secondary to poor visualization of prost ate. Recent CT of the prostate was calculated to have a volume of approximately 86 mL. Because of the patient's suprapubic pain and findings of a distended bladder, urology was consulted on the pat ient and decided to put a Corona catheter in. The patient's pain was relieved, and he did have urine output with Corona catheter placement and it was felt that patient should be kept in. The patient i s to follow up with urology in 1 week for removal of the Corona catheter. The patient was started on Flomax. He was advanced 0.4 mg b.i.d. and recommendation was to continue this upon discharge. Of note, the patient's sepsis from his prostatitis did resolve. He was seen by ID during the hospitali zation. His E. coli was sensitive to multiple antibiotics. On the day of discharge, the patient wa s feeling well. His vitals and labs were stable. He had no acute complaints and questions were ans wered. CONDITION ON DISCHARGE: Stable. DISPOSITION: To home. MEDICATIONS: The patient was given a prescription for: 1. Keflex 500 mg p.o. b.i.d. for 7 days. 2. Flomax 0.4 mg p.o. b.i.d. The patient is also to continue with his Corona catheter, which was to be removed by urology as an ou tpatient. The patient has no reported home medications. FOLLOWUP: 1. The patient is to follow up with his PCP and with urology in 1 week. 2. The patient is also to follow up with a home health agency for Corona catheter care maintenance. Greater than 30 minutes was spent coordinating discharge of patient. Dictated By: VERNELL RANKIN/BETTINA Conf#: [id number] DID#: [id number]
--- NOTE | 2017-03-20 13:05 | PN ---
DATE: 03/20/2017 INFECTIOUS DISEASE PROGRESS NOTE SUBJECTIVE: No acute changes. The patient is alert, feels better. Looks comfortable, no fevers. LABORATORY: WBC 7.6, no shift, no bands. BUN 13, creatinine 0.75. MICROBIOLOGY: Urine culture grew E coli susceptible to all antibiotics. PHYSICAL EXAMINATION: GENERAL: Well-developed, middle-aged man who is alert, in no distress. HEENT: Head atraumatic, normocephalic. Sclerae anicteric. Buccal mucosa pink. NECK: Supple. CHEST: Rise symmetrical. Breath sounds clear. HEART: S1, S2. ABDOMEN: Soft, bowel sounds present. EXTREMITIES: Without cyanosis. ASSESSMENT: 1. Escherichia coli urinary tract infection with acute prostatitis, urology on case, the patient is responding to Flomax. 2. Status post systemic inflammatory response syndrome with fevers and leukocytosis. PLAN: The patient remains stable, overall improved. Urology on case. Anticipate discharge on oral antibiotics for 2 weeks. Dictated By: LASHANDA MCMANUS BARREL LATHE OPERATOR for CHRISTOFER WU/BETTINA Conf#: [id number] DID#: [id number] MTDD
[2017-03-20 14:02] LABS: EOSINOPHILS # 0.5 10^3/ul (0.0-0.5); LYMPHOCYTES # 1.5 10^3/ul (0.8-2.9); MONOCYTE # 1.1 10^3/ul (0.3-0.9); MYELOCYTES # 0.5; NEUTROPHIL # 3.3 10^3/ul (1.6-7.5)
== END 2017-03-20 16:40 | disposition home or self-care (01) | DRG 872 ==
LOC: FTE 16:16 → MS1 21:42 → OBSVTOIN 03-17 11:24 → MS1 03-19 03:15
PROVIDERS: ADMIT Family Medicine; ATTEND Family Medicine
DX: A41.9 Sepsis, unspecified organism (principal); N39.0 Urinary tract infection, site not specified; N41.0 Acute prostatitis; Z80.42 Family history of malignant neoplasm of prostate; N40.1 Benign prostatic hyperplasia with lower urinary tract symptoms; R33.8 Other retention of urine; B96.20 Unspecified Escherichia coli [E. coli] as the cause of diseases classified elsewhere
CPT/HCPCS: 36415; 74177; 74181; 76705; 76856; 80048; 80053; 80061; 81001; 81003; 83036; 83735; 84100; 84153; 84154; 85025; 87086; 96374; 96375; 96376; G0378; J0696; J1170; J1650; J1956; J2405; J7030; Q9967